=== PATIENT | female | born 1980 | race Caucasian/White ===

== ENCOUNTER 2021-09-16 10:54 | Day surgery (SDC) | payer BC ==
[2021-09-15 13:51] VITALS: BMI 23.2
[~2021-09-16 10:54] MED LIST: LACTATED RINGERS 1,000 ML IV SCH; LIDOCAINE 1% (10MG/ML) FOR IV START INTRADERMA PRN
[2021-09-16 11:21] VITALS: TEMP 96.8
[2021-09-16] MEDS ORDERED: PROPOFOL 10 MG/ML 20 ML VIAL IV ONE (11:26)
--- NOTE | 2021-09-16 11:30 | P.GSHP ---
History of Present Illness H&P Date: 09/16/21 Chief Complaint: Screening, history of polyps 41-year-old female here for colonoscopy. Patient's last colonoscopy 7 years ago. History of 4 polyps found at that time 3 of which were tubular adenomas. Family history of colon cancer in her mother and uncle. Patient with complaints of an external hemorrhoid as well that is difficult to keep clean. No change in bowel habits. Past Medical History Past Medical History: No Reported History Additional Past Medical History / Comment(s): HEMORRHOIDS, HX COLON POLYPS., FAMILY HX OF COLON CANCER. History of Any Multi-Drug Resistant Organisms: None Reported Past Surgical History: Tubal Ligation Additional Past Surgical History / Comment(s): Colonoscopy with polypectomy. Past Anesthesia/Blood Transfusion Reactions: No Reported Reaction Past Psychological History: Anxiety Smoking Status: Current every day smoker Past Alcohol Use History: Rare Additional Past Alcohol Use History / Comment(s): Has been smoking for 20 yrs, 1 ppd. Past Drug Use History: None Reported - Past Family History Mother Family Medical History: Cancer Additional Family Medical History / Comment(s): Colon cancer. Medications and Allergies Home Medications Medication Instructions Recorded Confirmed Type PARoxetine [Paxil] 10 mg PO DAILY 04/11/21 09/16/21 History Allergies Allergy/AdvReac Type Severity Reaction Status Date / Time No Known Allergies Allergy Verified 09/16/21 11:10 Surgical - Exam Vital Signs Temp Pulse Resp BP Pulse Ox 96.8 F L 93 18 104/57 96 09/16/21 11:17 09/16/21 11:17 09/16/21 11:17 09/16/21 11:17 09/16/21 11:17 Physical exam: General: Well-developed, well-nourished HEENT: Normocephalic, sclerae nonicteric Abdomen: Nontender, nondistended Extremities: No edema Neuro: Alert and oriented Assessment and Plan (1) Colon cancer screening Narrative/Plan: Will proceed with colonoscopy at this time Current Visit: Yes Status: Acute Code(s): Z12.11 - ENCOUNTER FOR SCREENING FOR MALIGNANT NEOPLASM OF COLON SNOMED Code(s): 727040478
--- NOTE | 2021-09-16 11:52 | P.PCN ---
Date of Procedure: 09/16/21 Procedure(s) Performed: PREOPERATIVE DIAGNOSIS: Colon cancer screening, history of polyps POSTOPERATIVE DIAGNOSIS: Sigmoid colon polyp 25 cm, external hemorrhoid PROCEDURE: Colonoscopy with snare polypectomy ANESTHESIA: MAC SURGEON: Minh Beach M.D. SPECIMENS: Polyp ENDOSCOPIC PROCEDURE: The patient was placed on the endoscopy table in the left decubitus position. The Olympus colonoscope was inserted into the anus and passed under direct visualization to the base of the cecum. The appendiceal nasim fice was visualized. From that point the scope was slowly withdrawn inspecting all surfaces carefully. There were no neoplastic inflammatory or polypoid lesions throughout the cecum, ascending, transverse, and descending colon. In the sigmoid at 25 cm there was a pedunculated polyp that was removed using the snare with cautery technique. In this measured 8 mm in size. There was no visible diverticulosis. At the anus the patient was noted have a prominent internal/external hemorrhoidal complex in the right anterior location. This was mildly inflamed. The patient was taken to the recovery room in stable condition per anesthesia guidelines. RECOMMENDATIONS: Await biopsy results. Patient will consider operative hemorrhoidectomy. Follow-up colonoscopy 5 years.
[2021-09-16 12:13] VITALS: BP 110/66; PULSE 71; RESP 16
== END 2021-09-16 12:25 | disposition home or self-care (01) ==
LOC: ORWHC2ENDO 10:54
PROVIDERS: ATTEND Surgery
DX: Z12.11 Encounter for screening for malignant neoplasm of colon (principal); D12.5 Benign neoplasm of sigmoid colon; K64.8 Other hemorrhoids; K64.4 Residual hemorrhoidal skin tags; F17.210 Nicotine dependence, cigarettes, uncomplicated; Z80.0 Family history of malignant neoplasm of digestive organs; Z86.010 Personal history of colon polyps; Z98.51 Tubal ligation status; Z79.899 Other long term (current) drug therapy
CPT/HCPCS: 81025; 88305; 45385; J2704

== ENCOUNTER → 2023-06-01 | Outpatient (CLI) | payer BC ==
--- NOTE | 2023-06-01 14:44 | MM ---
Reason for Exam: Clinical finding. Indicated Problems: Lump or thickening of both sides for 2 Week(s). Patient History: Menarche at age 13. First Full-Term at age 21. Patient used Hormonal Contraceptives for 15 years. Last menstrual period: 06/01/2023 Risk Values: Huma 5 year model risk: 0.7%. NCI Lifetime model risk: 7.9%. Tissue Density: The breast tissue is heterogeneously dense. This may lower the sensitivity of mammography. Findings: Analyzed By CAD. Focal asymmetry right breast 3.4 cm nipple on MLO view posterior nipple line measuring 16 mm and left breast MLO view 2.9 cm from nipple measuring 16 mm . On CC view these are slightly lateral the bilaterally. Overall Assessment: Incomplete: need additional imaging evaluation, BI-RAD 0 Management: Diagnostic Breast Ultrasound of both breasts. Results were given to the patient verbally at the time of exam. Patient should continue monthly self-breast exams. A clinical breast exam by your physician is recommended on an annual basis. This exam should not preclude additional follow-up of suspicious palpable abnormalities. Note on Huma scores and lifetime risk: 1. A Huma score greater than 3% is considered moderate risk. If this is the case, consider specialist referral to assess eligibility for a risk reducing agent. 2. If overall lifetime risk for the development of breast cancer is 20% or higher, the patient may qualify for future screening with alternating mammogram and breast MRI. Electronically signed and approved by: Isai Herrmann DO
--- NOTE | 2023-06-01 15:53 | USB ---
Reason for Exam: Clinical finding. Patient History: Menarche at age 13. First Full-Term at age 21. Patient used Hormonal Contraceptives for 15 years. Risk Values: Huma 5 year model risk: 0.7%. NCI Lifetime model risk: 7.9%. Technique: Method: Targeted. Findings: The area of palpable concern of both breasts, the axilla of both breasts and the retroareolar of both breasts were scanned. Targeted ultrasound bilateral breasts. Targeted scanning to the patient's palpable site. Right breast 10:00 position including the subareolar region and axilla. Right breast 10:00, 1 cm from the nipple, there is a benign 1.6 x 1.4 x 1.2 cm lobulated cyst. Left breast 10:00 position, 1 cm from the nipple, 1.4 x 1.2 x 0.9 cm lobulated cyst. In addition, there is a dense shadowing area measuring approximately 9 mm located directly behind the nipple. This appears to correspond to a spiculated area on mammogram. Further tissue sampling is recommended. No axillary lymphadenopathy. Overall Assessment: Highly suggestive of malignancy, BI-RAD 5 Management: Ultrasound-Guided Core Biopsy of the left breast. Results were given to the patient verbally at the time of exam. Electronically signed and approved by: Isai Herrmann DO
== END | disposition home or self-care (01) ==
LOC: RADMAMWWP 14:10
PROVIDERS: ATTEND Family Medicine
DX: R92.333 Mammographic heterogeneous density, bilateral breasts (principal); N63.10 Unspecified lump in the right breast, unspecified quadrant; N63.20 Unspecified lump in the left breast, unspecified quadrant
CPT/HCPCS: 77062; 77066

== ENCOUNTER → 2023-06-18 | Outpatient (CLI) | payer BC ==
[2023-06-18 13:52] VITALS: BP 128/82; PULSE 81; RESP 18; TEMP 98.2
--- NOTE | 2023-06-18 14:19 | P.GSHP ---
History of Present Illness H&P Date: 06/18/23 Chief Complaint: left breast invasive lobular cancer; stage I Kate is a 43 year old female seen in consultatio for Nahed De La Garza regarding a biopsy proven left breast invasive lobular cancer. She had a bilateral mammogram on 06-01-23 which led to a bilateral ultrasound on the same date. This revealed cyst in both breast as well as a 9 mm lesion posterior to the left nipple. This was biopsied and was (+) for an invasive lobular cancer, ER+< Pr+, HEr2(-),G2. Her felt a lump in her left breast two months ago. She then decided to have this evaluated. She has always had dense breast but nothing that required biopsy. Not had any surgery on her breast in the past. She is not complaining of any recent trauma or infection in the breast. She does not complain of pain in the breast. She has regular menstrual periods. This was her first mammogram. She does get regular colonoscopies secondary to family history she has had polyps removed. Her last one was in 2021 two polpys removed no cancer. She has not had any genetic testing. Caffeine: coffee and pop daily nicotine: 1 PPD since 14 chocolate: occasional BCP: from 16 until 33 hormones: none Family History: mother: of colon cancer at 37 maternal uncle: of colon cancer in his 30's maternal uncle: of pancreatic cancer Maternal uncle: Diagnosed with pancreatic cancer maternal aunt: cancer ? type paternal grandfather: brain cancer Hormonal History: menarche: 12 , breast fed: no, age at first : 21 periods regular BCP: 16 to 33 Surgical history: tubaligation dental surgery Medical History: none Patient history: Nicotine: One pack per day Alcohol: Negative Drugs: Negative - Constitutional Constitutional: Denies chills, Denies fever - EENT Eyes: denies blurred vision, denies pain Ears: deny: decreased hearing, tinnitus Ears, nose, mouth and throat: Denies headache, Denies sore throat - Breasts Breasts: bilateral: as per HPI - Cardiovascular Cardiovascular: Denies chest pain, Denies shortness of breath - Respiratory Respiratory: Reports as per HPI, Denies cough - Gastrointestinal Gastrointestinal: Denies abdominal pain, Denies diarrhea, Denies nausea, Denies vomiting - Genitourinary (Female) Genitourinary: Denies dysuria, Denies hematuria - Menstruation Menstruation: Reports period normal - Musculoskeletal Musculoskeletal: Denies myalgias - Integumentary Comment: Rosacea/may be related to nerves Integumentary: Denies pruritus, Denies rash - Neurological Neurological: Denies numbness, Denies weakness - Psychiatric Psychiatric: Reports anxiety, Denies depression - Endocrine Endocrine: Denies fatigue, Denies weight change - Hematologic/Lymphatic Comment: none - Allergic/Immunologic Allergic/Immunologic: Reports as per HPI Past Medical History Past Medical History: No Reported History Additional Past Medical History / Comment(s): HEMORRHOIDS, HX COLON POLYPS., FAMILY HX OF COLON CANCER. History of Any Multi-Drug Resistant Organisms: None Reported Past Surgical History: Tubal Ligation Additional Past Surgical History / Comment(s): Colonoscopy with polypectomy. Past Anesthesia/Blood Transfusion Reactions: No Reported Reaction Past Psychological History: Anxiety Smoking Status: Current every day smoker Past Alcohol Use History: Rare Additional Past Alcohol Use History / Comment(s): Has been smoking for 20 yrs, 1 ppd. Past Drug Use History: None Reported - Past Family History Mother Family Medical History: Cancer Additional Family Medical History / Comment(s): Colon cancer. Medications and Allergies Home Medications Medication Instructions Recorded Confirmed Type PARoxetine [Paxil] 10 mg PO DAILY 04/11/21 06/18/23 History Allergies Allergy/AdvReac Type Severity Reaction Status Date / Time No Known Allergies Allergy Verified 06/18/23 13:45 Surgical - Exam Vital Signs Temp Pulse Resp BP Pulse Ox 98.2 F 81 18 128/82 100 06/18/23 13:45 06/18/23 13:45 06/18/23 13:45 06/18/23 13:45 06/18/23 13:45 - General no distress - Eyes normal ocular movement - ENT no hearing loss - Neck trachea midline - Cardiovascular Rhythm: regular Heart Sounds: normal: S1, S2 - Abdomen Abdomen: soft, non tender, no guarding, no rigid, no rebound - Integumentary normal turgor - Neurologic no disoriented, no combative - Musculoskeletal normal gait - Psychiatric oriented to time, oriented to person, oriented to place, speech is normal, memory intact Breast Exam: BRA: 36C Inspection: Biopsy site left breast clean and dry, bilateral grade 1 ptosis Palpation: Right breast: Multi-positional exam no dominant masses or nodules of concern, dense breast tissue Right axilla: No adenopathy of concern Left breast: Multi-positional exam dense breast tissue with increased nodularity directly behind the nipple areolar complex Left axilla: No adenopathy of concern Results Mammogram and ultrasound personally reviewed Assessment and Plan Assessment: Impression: The diagnosis of stage I left breast invasive lobular carcinoma Nicotine dependence Plan: Presentation of case at tumor board Genetic testing Breast MRI CC: Chio De La Garza
== END ==
LOC: WWCWWP 12:54
PROVIDERS: ATTEND Surgery
DX: C50.912 Malignant neoplasm of unspecified site of left female breast (principal); F41.9 Anxiety disorder, unspecified; F17.210 Nicotine dependence, cigarettes, uncomplicated; N60.01 Solitary cyst of right breast; N60.02 Solitary cyst of left breast; Z87.19 Personal history of other diseases of the digestive system; Z17.0 Estrogen receptor positive status [ER+]

== ENCOUNTER → 2023-07-08 | Outpatient (CLI) | payer BC ==
--- NOTE | 2023-07-20 12:57 | BMR ---
EXAM DATE: 07/19/2023 EXAM DESCRIPTION: MRI-Breast Bilat (W/WO Contrast) INDICATION: Diagnostic. Recently diagnosed carcinoma presenting for staging COMPARISON: Comparison is made with relevant prior imaging in PACS. CONTRAST: 6.5 cc of Gadavist TECHNIQUE: Study was performed at [facility] on 07/08 with images made available by radiologic interpretation by [facility] on 07/19/2023. Multiplanar MRI imaging of both breasts was performed with a dedicated breast coil, before and after intravenous administration of gadolinium contrast, using the standard breast mass protocol. Computer-aided detection was used to aid in interpretation. FINDINGS: General breast composition: There are scattered areas of fibroglandular tissue Background parenchymal enhancement: Mild FINDINGS: Left breast: Review of the dynamic contrast-enhanced series shows a irregular enhancing mass in the central breast at mid depth measuring 2.3 x 1.9 x 1.7 cm at site of known malignancy (503:350, 601:42). There is non contiguous associated clumped non mass enhancement extending to the nipple with nipple retraction. There is also noncontiguous associated clumped non mass enhancement extending medially to the inner breast, the entire area measuring 4.3 x 3.6 cm. An additional 0.5 cm satellite mass is present 0.6 cm inferior to the index mass (601:43, 504:287). There is 1 left axillary lymph node with focally ectatic cortex (503:742) Right breast: Review of the dynamic contrast-enhanced series shows 0.5 cm oval circumscribed enhancing T2 mass consistent with a intramammary lymph node. No suspicious rapidly enhancing masses, enhancement patterns or other abnormalities. The T2 weighted series shows scattered benign cysts. IMPRESSION: Left breast: BI-RADS Category6- Known biopsy proven malignancy 1. 2.3 cm mass in the central breast at mid depth at the site of known malignancy. There is non contiguous non mass enhancement extending to the medial breast as well as to the nipple with nipple retraction. This entire area measures 4.3 x 3.6 cm and is concerning for multicentric disease. If breast conservation is being considered, recommend targeted ultrasound and possible biopsy, if no sonographic correlate is present recommend MR biopsy for evaluation of extent of disease. 2. One axillary lymph node with focally ectatic cortex, recommend targeted ultrasound and possible biopsy. Recommendation: Targeted left breast ultrasound and possible biopsy. Right breast: BI-RADS Category 1- Negative No MRI evidence of malignancy. Recommendation: MRI screening in 1 year OVERALL ASSESSMENT -- BI-RADS 6 MTDD
== END | disposition home or self-care (01) ==
LOC: RADMRIMAIN 11:29
PROVIDERS: ATTEND Surgery
DX: C50.212 Malignant neoplasm of upper-inner quadrant of left female breast (principal)
CPT/HCPCS: 77049; A9585

== ENCOUNTER → 2023-07-21 | Outpatient (CLI) | payer BC ==
--- NOTE | 2023-07-21 13:11 | P.PN ---
Subjective Progress Note Date: 07/21/23 Principal diagnosis: Left breast invasive lobular carcinoma stage IA History of Present Illness H&P Date: 07-21-23 Chief Complaint: left breast invasive lobular cancer; stage I Kate is a 43 year old female seen in consultation for Nahed De La Garza regarding a biopsy proven left breast invasive lobular cancer. She had a bilateral mammogram on 06-01-23 which led to a bilateral ultrasound on the same date. This revealed cyst in both breast as well as a 9 mm lesion posterior to the left nipple. This was biopsied and was (+) for an invasive lobular cancer, ER+< Pr+, HEr2(-),G2. Her felt a lump in her left breast two months ago. She then decided to have this evaluated. She has always had dense breast but nothing that required biopsy. Not had any surgery on her breast in the past. She is not complaining of any recent trauma or infection in the breast. She does not complain of pain in the breast. She has regular menstrual periods. This was her first mammogram. She does get regular colonoscopies secondary to family history she has had polyps removed. Her last one was in 2021 two polpys removed no cancer. She has not had any genetic testing. Bilateral breast MRI was performed on [id number], findings revealed questionable multicentric disease in the left breast and left axillary lymph node with focally ectatic cortex Right breast no suspicious enhancing lesions noted MRI was reviewed with Dr. Pisano in detail Genetic testing performed negative Appointment with Dr. Moody/at this time the patient prefers bilateral mastectomy with immediate reconstruction Caffeine: coffee and pop daily nicotine: 1 PPD since 14 chocolate: occasional BCP: from 16 until 33 hormones: none Family History: mother: of colon cancer at 37 maternal uncle: of colon cancer in his 30's maternal uncle: of pancreatic cancer Maternal uncle: Diagnosed with pancreatic cancer maternal aunt: cancer ? type paternal grandfather: brain cancer Hormonal History: menarche: 12 , breast fed: no, age at first : 21 periods regular BCP: 16 to 33 Surgical history: tubaligation dental surgery Medical History: none Patient history: Nicotine: One pack per day Alcohol: Negative Drugs: Negative - Constitutional Constitutional: Denies chills, Denies fever - EENT Eyes: denies blurred vision, denies pain Ears: deny: decreased hearing, tinnitus Ears, nose, mouth and throat: Denies headache, Denies sore throat - Breasts Breasts: bilateral: as per HPI - Cardiovascular Cardiovascular: Denies chest pain, Denies shortness of breath - Respiratory Respiratory: Reports as per HPI, Denies cough - Gastrointestinal Gastrointestinal: Denies abdominal pain, Denies diarrhea, Denies nausea, Denies vomiting - Genitourinary (Female) Genitourinary: Denies dysuria, Denies hematuria - Menstruation Menstruation: Reports period normal - Musculoskeletal Musculoskeletal: Denies myalgias - Integumentary Comment: Rosacea/may be related to nerves Integumentary: Denies pruritus, Denies rash - Neurological Neurological: Denies numbness, Denies weakness - Psychiatric Psychiatric: Reports anxiety, Denies depression - Endocrine Endocrine: Denies fatigue, Denies weight change - Hematologic/Lymphatic Comment: none - Allergic/Immunologic Allergic/Immunologic: Reports as per HPI Past Medical History Past Medical History: No Reported History Additional Past Medical History / Comment(s): HEMORRHOIDS, HX COLON POLYPS., FAMILY HX OF COLON CANCER. History of Any Multi-Drug Resistant Organisms: None Reported Past Surgical History: Tubal Ligation Additional Past Surgical History / Comment(s): Colonoscopy with polypectomy. Past Anesthesia/Blood Transfusion Reactions: No Reported Reaction Past Psychological History: Anxiety Smoking Status: Current every day smoker Past Alcohol Use History: Rare Additional Past Alcohol Use History / Comment(s): Has been smoking for 20 yrs, 1 ppd. Past Drug Use History: None Reported - Past Family History Mother Family Medical History: Cancer Additional Family Medical History / Comment(s): Colon cancer. Medications and Allergies Home Medications Medication Instructions Recorded Confirmed Type PARoxetine [Paxil] 10 mg PO DAILY 04/11/21 06/18/23 History Allergies Allergy/AdvReac Type Severity Reaction Status Date / Time No Known Allergies Allergy Verified 06/18/23 13:45 Objective - Constitutional General appearance: Present: cooperative - EENT Eyes: Present: EOMI ENT: Present: hearing grossly normal - Neck Neck: Present: normal ROM - Respiratory Respiratory: bilateral: CTA - Cardiovascular Rhythm: regular Heart sounds: normal: S1, S2 - Gastrointestinal General gastrointestinal: Present: soft - Integumentary Integumentary: Present: normal turgor - Musculoskeletal Musculoskeletal: Present: gait normal - Psychiatric Psychiatric: Present: A&O x's 3, appropriate affect, intact judgment & insight - Additional findings Additional findings: Breast Exam: BRA: 36C Inspection: Biopsy site left breast clean and dry, bilateral grade 1 ptosis Palpation: Right breast: Multi-positional exam no dominant masses or nodules of concern, dense breast tissue Right axilla: No adenopathy of concern Left breast: Multi-positional exam dense breast tissue with increased nodularity directly behind the nipple areolar complex Left axilla: No adenopathy of concern Assessment and Plan Assessment: Impression: stage I left breast invasive lobular carcinoma Nicotine dependence Genetic testing negative Possible multicentric lobular carcinoma in the left breast as per recent MRI Possible involved lymph node in the left axilla Plan: Presentation of case at tumor board; done 06-22-23 Genetic testing; negative Breast MRI; reviewed with radiology Dr. Beltran Ultrasound left axilla secondary to findings on MRI Bilateral skin sparing mastectomy with immediate reconstruction with Dr. Moody, left breast sentinel node injection, left breast sentinel node biopsy, possible left axillary node dissection The benefits of the procedure discussed with the patient and her . Risks include but are not limited to bleeding, infection, reaction to the anesthetic. Risk of decreased sensation to the inner arm, lymphedema, injury to the thoracodorsal and long thoracic nerves are discussed. Additionally the patient has been encouraged to stop smoking secondary to wound healing. Discussed the possibility of methylene blue injection she understands and wishes to proceed with surgery. CC: Chio De La Garza Additional CC's: Cookie Prather
[2023-07-21 13:26] VITALS: BP 116/75; PULSE 92; RESP 16; TEMP 97.9
--- NOTE | 2023-07-21 14:12 | USB ---
Reason for Exam: Additional evaluation requested from prior study. Patient History: Menarche at age 13. First Full-Term at age 21. Breast cancer, left, age 43. Patient used Hormonal Contraceptives for 15 years. 06/11/2023, Malignant US biopsy breast VAD LT on the left side. Technique: Method: Targeted. Prior Study Comparison: 06/01/2023 Bilateral US breast limited BILAT, H. 06/01/2023 Bilateral MG 3D diag mammo w/cad [facility], [facility]. 06/11/2023 Left MG diagnostic mammo LT wo CAD., [facility]. Findings: The axilla of both breasts was scanned. Right axilla appears negative. No suspicious adenopathy is evident. Left axilla is imaged. There is an elongated lymph node measuring 3.0 x 0.6 x 0.8 cm. The cortex is thin. No suspicious thickened cortex is identified. Cortex measurement is 0.186 cm. Surgical management of the patient's left breast neoplasm is recommended. Overall Assessment: Benign, BI-RAD 2 Management: Surgical Consultation of the left breast. A clinical breast exam by your physician is recommended on an annual basis and results should be correlated with mammographic findings. This exam should not preclude additional follow-up of suspicious palpable abnormalities. Results were given to the patient verbally at the time of exam. Electronically signed and approved by: Eric Pisano D.O. Radiologis
== END ==
LOC: WWCWWP 12:30
PROVIDERS: ATTEND Surgery
DX: C50.912 Malignant neoplasm of unspecified site of left female breast (principal); K64.8 Other hemorrhoids; F41.9 Anxiety disorder, unspecified; F17.200 Nicotine dependence, unspecified, uncomplicated; Z86.010 Personal history of colon polyps

== ENCOUNTER → 2023-07-21 | Outpatient (CLI) | payer BC | END | disposition home or self-care (01) | LOC: RADUSWWP 13:22 | PROVIDERS: ATTEND Surgery | DX: Z53.9 Procedure and treatment not carried out, unspecified reason (principal) ==

== ENCOUNTER 2023-08-10 10:27 | Day surgery (SDC) | payer BC ==
[2023-08-03 15:54] VITALS: BMI 26.5
[2023-08-10] MEDS: LACTATED RINGERS 1,000 ML IV ONE ×2 (11:11→14:14)
[2023-08-10] MEDS: LIDOCAINE 1% (10MG/ML) FOR IV START INTRADERMA PRN (11:23)
[2023-08-10] MEDS: DEXAMETHASONE SOD PHOSPHATE 4 MG/ML 1 ML VIAL IV ONE (11:24)
[2023-08-10] MEDS: ONDANSETRON 4 MG/2 ML VIAL IVP ONE (11:24)
[2023-08-10] MEDS: FAMOTIDINE 20 MG/2 ML VIAL IVP ONE (11:24)
[2023-08-10] MEDS: HEPARIN SODIUM,PORCINE 5,000 UNIT/ML 1 ML VIAL SQ PRN (11:25)
[2023-08-10] MEDS: MIDAZOLAM 2 MG/2 ML VIAL IV PRN (11:29)
--- NOTE | 2023-08-10 12:26 | P.NAPBC ---
NAPBC Queries - NAPBC Queries Was patient's case review presented at [facility] tumor board? If no, comment.: Yes Was patient's pathology reviewed at [facility]? If no, comment.: Yes Was breast conservation surgery offered? If no, comment.: Yes (discussed) Was sentinel node biopsy offered? If no, comment.: Yes Was diagnosis confirmed by percutaneous core biopsy? If no, comment.: Yes Is patient mastectomy patient?: Yes Was a preop referral to reconstructive surgeon offered?: Yes Clinical Stage: stage I left breast invasive lobular cancer [id number]
[2023-08-10] MEDS ORDERED: PHENYLEPHRINE 10 MG/ML VIAL ONE (13:07)
[2023-08-10] MEDS ORDERED: ePHEDrine 50 MG/ML 1 ML VIAL ONE (13:07)
[2023-08-10] MEDS ORDERED: fentaNYL (PF) 50 MCG/ML 2 ML AMP ONE (13:07)
[2023-08-10] MEDS ORDERED: MIDAZOLAM 2 MG/2 ML VIAL ONE (13:07)
[2023-08-10] MEDS ORDERED: SUCCINYLCHOLINE CHLORIDE 200 MG/10 ML VIAL IV ONE (13:07)
[2023-08-10] MEDS ORDERED: PROPOFOL 10 MG/ML 20 ML VIAL IV ONE (13:07)
[2023-08-10] MEDS ORDERED: LIDOCAINE 1% INJ 10MG/ML (20 ML MDV) ONE (13:07)
--- NOTE | 2023-08-10 13:59 | NM ---
EXAMINATION TYPE: NM sentinel node injection DATE OF EXAM: 08/10/2023 COMPARISON: NONE CLINICAL INDICATION: Female, 43 years old with history of LEFT BREAST CA; TECHNIQUE AND FINDINGS: The procedure of sentinel lymph node injection was explained to the patient. The benefits, alternatives, and risks were discussed. An informed consent was then obtained. Overlying skin is cleaned with sterile alcohol. Following this, 476 uCi [id number] Tilmanocept was inject ed in the upper outer aspect of the left nipple intradermally. The patient tolerated the procedure well without any immediate complication. The patient was kept in the radiology department for short stay after the procedure and then taken to surgery for surgical p rocedure what is presumed intraoperative gamma probe will be used for sentinel lymph node detection. IMPRESSION: Left breast radiotracer injection for sentinel node localization as above.
[2023-08-10] MEDS ORDERED: NALOXONE 0.4 MG/ML 1 ML VIAL IV PRN (15:09)
--- NOTE | 2023-08-10 15:09 | P.OP ---
Date of Procedure: 08/10/23 Preoperative Diagnosis: Left breast invasive lobular carcinoma Postoperative Diagnosis: Same Procedure(s) Performed: Left sentinel node biopsy, bilateral skin sparing mastectomy with implant reconstruction Anesthesia: NKECHI Surgeon: Edilia Vázquez Estimated Blood Loss (ml): 25 IV fluids (ml): 1,000 Pathology: other (Left sentinel node, bilateral breast) Condition: stable Disposition: same day Indications for Procedure: Left breast invasive lobular carcinoma/MRI questionably multicentric Operative Findings: Dense breast tissue Description of Procedure: The patient was seen first by radiology where injection of radiotracer was performed in the left periareolar area. The patient was also seen in the preoperative area by Dr. Infante from plastic surgery and circumareolar incision markings were placed. The patient was brought to the operative suite. Following induction of anesthesia the neoprobe was used to interrogate the axilla and confirmed that radioactivity had traveled to the axilla. 2 radioactive lymph nodes were identified, and removed. The first had a 10-second count of 7755, the second had a 10-second count of 59,672. The background 10- second count was 37. No further suspicious adenopathy was identified. After we are sure that hemostasis was attained the deep tissues were closed using 3-0 Vicryl suture. This was followed by closure of the skin with a 4-0 Monocryl. The left breast was then approached. Using a circumareolar incision careful dissection was performed between the subcutaneous tissue and the breast tissue. Dissection was performed circumferentially down to the area of the pectoralis muscle. The breast was removed from the pectoralis muscle from medial to lateral. The specimen was then tagged with a short suture superior and a long suture lateral. The wound was well-irrigated. We used the harmonic scalpel as well as an suture ligation to assure that there was no active bleeding. The area of the right breast was approached. Gloves and instruments were changed. A circumareolar incision was performed. Circumferential dissection between the area of the subcutaneous tissue and the breast tissue was performed. This was dissected down to the pectoralis muscle. The breast was brought from medial to lateral being careful to maintain hemostasis using the electrocautery device, harmonic scalpel, and suture ligation of needed. After the tissue had been dissected laterally it was removed. As short suture was placed superiorly and a long suture was placed laterally. The wound was well-irrigated. At this time Dr. Moody from plastic surgery began his portion of the procedure with placement of prepectoral expanders.
[2023-08-10] MEDS: HYDROmorphone 0.5 MG/0.5 ML SYRINGE IVP PRN (16:07)
[2023-08-10] MEDS: droPERidol 5 MG/2 ML VIAL IVP ONE (16:33)
[2023-08-10] MEDS: LACTATED RINGERS 1,000 ML IV SCH (16:45)
[2023-08-10] MEDS: DEXTROSE 5%-0.45% NACL 1,000 ML IV SCH (17:30)
[2023-08-10] MEDS: HYDROmorphone 1 MG/ML 1 ML SYRINGE IVP PRN (18:34)
[2023-08-10] MEDS: HEPARIN SODIUM,PORCINE 5,000 UNIT/ML 1 ML VIAL SQ SCH (20:42)
[2023-08-10] MEDS: ONDANSETRON 4 MG/2 ML VIAL IVP PRN (21:38)
--- NOTE | 2023-08-10 23:52 | OP ---
OPERATIVE REPORT DATE OF SERVICE : 08/10/2023 PREOPERATIVE DIAGNOSES: 1. Breast cancer, left breast. 2. Acquired loss right and left breast. POSTOPERATIVE DIAGNOSES: 1. Breast cancer, left breast. 2. Acquired loss, bilateral breasts. OPERATIVE PROCEDURES: 1. Immediate reconstruction left breast following mastectomy with insertion of tissue party plan sales unit sales leader, subsequent outpatient expansion. 2. Implantation of reconstructive graft for left breast reconstruction. 3. Immediate reconstruction right breast following mastectomy with insertion of tissue party plan sales unit sales leader, subsequent outpatient expansion. 4. Implantation of reconstructive graft for right breast reconstruction. OPERATIVE INDICATIONS: The patient is a 43-year-old female with left-sided breast cancer, was elected to proceed with bilateral mastectomy procedures and desires immediate breast reconstruction. She has elected upon a tissue party plan sales unit sales leader style technique. She understands potential risks and complications, including the increased risk of healing problems related to her history of habitual tobacco use. The patient has requested to perform today's surgery. OPERATIVE PROCEDURE SUMMARY: The patient was seen in the preoperative area. Markings were made. Procedure reviewed. The patient was transported to the operative room where she was placed in supine position. Following induction of general endotracheal anesthesia, the patient was prepped and draped in usual fashion. Dr. Vázquez and her surgical team then proceeded with left-sided sentinel lymph node excision and left-sided mastectomy procedure. Once that was complete, I entered the operative suite. Dr. Vázquez proceeded with the right-sided mastectomy while I initiated left breast reconstruction. Sponge and needle counts from prior procedure were correct. The left mastectomy wound was open, no active bleeding. Additional dissection was required to optimize position for tissue party plan sales unit sales leader elevating skin, subcutaneous tissue overlying muscle and fascial tissues performed with cautery. Once this was sufficient, the cavity was measured and left-sided tissue party plan sales unit sales leader opened on the field. Both expanders were opened today with the same from [facility] tissue party plan sales unit sales leader line, reference #[id number], left-sided serial number was [id number] and later when opened, the right-sided serial number was [id number]. The left-sided party plan sales unit sales leader was opened to the surgeon. All air extracted, it was irrigated with saline and initially filled to a volume of 300 mL. This was placed in the reconstructive cavity for test fitting, although the volume was too great to allow for closure in a tension-free fashion, volume was reduced to 150 mL, which allowed for tension-free closure of the skin. The party plan sales unit sales leader was now covered with graft material, AlloDerm Select restore tissue matrix perforated, large size measuring 327 square cm, opened on the field. The AlloDerm was rinsed several times in saline and then a pre-stretched AlloDerm was now placed over all anterior surfaces of the party plan sales unit sales leader and secured with interrupted 2-0 Vicryl sutures through the 6 suture tabs. The right- sided party plan sales unit sales leader was now opened onto the field. Again, all air extracted, irrigated with saline. The right-sided party plan sales unit sales leader was filled to a volume of 150 mL with air and a second piece of AlloDerm Select restore tissue majors perforated large measuring 327 square cm, this was brought on the field. Both AlloDerms were medium thickness today. The AlloDerms were rinsed several times with saline, pre-stretched and then used to cover the anterior surface of the right-sided tissue party plan sales unit sales leader securing to the 6 suture tab locations using interrupted 2-0 Vicryl suture. Once the right-sided mastectomy procedures completed, the right-sided mastectomy cavity was inspected. Additional dissection was required to optimize position of party plan sales unit sales leader, it was completed with cautery elevating skin subcutaneous tissue of the muscle, muscle fascia layers. Once complete, irrigation was performed inside, each party plan sales unit sales leader was placed in its respective cavity for test fitting. They were then removed. Cavities were irrigated and inspected for hemostasis was optimal. A 19-round David channel drains were inserted in the surgical field. The left side brought separate stab incisions in the right anterior lower chest wall and sutured in place with 2-0 Prolene and then cut to appropriate length. The expanders were repositioned in the reconstructive cavities and once under palpable orientation, the expanders were secured to the chest wall using 3 of the 6 suture tabs medial superior, medial inferior, and central inferior securing with interrupted 2-0 Vicryl sutures. The mastectomy procedures were performed through a circumareolar approach and the medial one half of the chilkoot was now closed using a pursestring style 3-0 Monocryl suture. The lateral one half was closed by direct approximation using inverted interrupted deep dermal 3-0 Monocryl. The lateral portion of the closure was then completed with short running 5-0 Prolene and additional deep dermal 4-0 Monocryl suture used to complete the closure of the pursestring suture more finely approximating more superficial dermis and then completing the superficial dermal epidermal closure interrupted james. Drains were connected to close bulb suction patent. Surgical colon were cleansed with saline, dried and postoperative bandages were placed using bacitracin ointment over suture repairs followed by Adaptics, then Kerlix squares, secured with 3M Medipore tape. Drain sponges were placed and secured with tape as well. The patient was then awakened from her anesthetic, extubated in the operating room, transferred to recovery room in good condition with stable vital signs. ESTIMATED BLOOD LOSS: 25 mL. There were no complications. MMODL / IJN: [id number] /
[2023-08-11] MEDS: Acetaminophen-Codeine 300-30mg TAB PO PRN (00:31)
[2023-08-11 01:19] VITALS: RESP 16
[2023-08-11 07:33] LABS: Basophils % (A) 0 %; Eosinophils % (A) 0 %; HCT 41.1 % (34.0-46.0); HGB 14.2 gm/dL (11.4-16.0); Lymphocytes # (A) 1.8 k/uL (1.0-4.8); Lymphocytes % (A) 16 %; MCH 33.2 pg (25.0-35.0); MCHC 34.5 g/dL (31.0-37.0); MCV 96.3 fL (80.0-100.0); Mean Platelet Volume 9.1; Monocytes # (A) 0.3 k/uL (0-1.0); Monocytes % (A) 3 %; Neutrophils # (A) 9.3 k/uL (1.3-7.7); Neutrophils % (A) 80 %; Platelet Count 124 k/uL (150-450); RBC 4.27 m/uL (3.80-5.40); RDW 13.9 % (11.5-15.5); WBC 11.7 k/uL (3.8-10.6)
[2023-08-11 08:04] VITALS: BP 91/55; PULSE 75; TEMP 98
[2023-08-11] MEDS: PARoxetine 10 MG TAB PO SCH (08:38)
[2023-08-11] MEDS ORDERED: CYANOCOBALAMIN 500 MCG TAB PO SCH (10:45)
--- NOTE | 2023-08-11 10:53 | P.PN ---
Subjective Progress Note Date: 08/11/23 Principal diagnosis: Postop day #1 bilateral mastectomy with left sentinel node biopsy Postop day #1 bilateral mastectomy with prepectoral implant reconstruction and left sentinel node biopsy. The patient states she is doing well. She has had a serous drainage from her SAMANTA drains. Left 30 cc, right 45 cc. Her white count is 11.7, hemoglobin is 14.2. It is noted that her systolic blood pressure was 91 and this is to be rechecked. Otherwise the patient is doing well and wishes to be discharged home. Objective - Vital Signs Vital signs: Vital Signs Temp 98.0 F 08/11/23 07:59 Pulse 75 08/11/23 07:59 Resp 16 08/11/23 07:59 BP 91/55 08/11/23 07:59 Pulse Ox 98 08/11/23 07:59 FiO2 Intake & Output 08/10/23 08/11/23 08/11/23 18:59 06:59 18:59 Intake Total 2150 Output Total 293 875 Balance 1857 -875 Weight 67.9 kg Intake: IV 2150 Output: Drainage 68 75 Left Breast 28 30 Right Breast 40 45 Urine 200 800 Estimated Blood Loss 25 Other: # Voids 1 - Constitutional General appearance: Present: cooperative - EENT Eyes: Present: EOMI ENT: Present: hearing grossly normal - Neck Neck: Present: normal ROM - Respiratory Respiratory: bilateral: CTA - Cardiovascular Heart sounds: normal: S1, S2 - Integumentary Integumentary Comment(s): incision clean and dry bilateral, incision clean and dry left axilla No evidence of any seroma - Musculoskeletal Musculoskeletal Comment(s): patient in a chair - Psychiatric Psychiatric: Present: A&O x's 3, appropriate affect, intact judgment & insight - Labs CBC & Chem 7: 08/11/23 07:20 Labs: Abnormal Lab Results - Last 24 Hours (Table) 08/11/23 Range/Units 07:20 WBC 11.7 H (3.8-10.6) k/uL Plt Count 124 L (150-450) k/uL Neutrophils # 9.3 H (1.3-7.7) k/uL Assessment and Plan Assessment: Impression: POD #1 bilateral mastectomy with prepectoral construction, left sentinel node biopsy evaluated by Dr. Arenas Plan: Discharge home if okay with medicine Teach drain care Follow-up Dr. Murray 1 week Follow-up with Dr. Santiago
--- NOTE | 2023-08-11 10:56 | P.DS ---
Providers Attending physician: Edilia Vázquez Consults: 08/10/23 15:12 Consult Physician Routine Consulting Provider: Ruddy Arenas Consult Reason/Comments: medical managment Do you want consulting provider notified?: Yes Primary care physician: Cookie Prather [facility] Course: A 43-year-old white female diagnosed with a left breast stage I invasive lobular carcinoma. She was admitted on 08-09-2023 for a bilateral skin sparing mastectomy with prepectoral implant reconstruction and a left sentinel node biopsy. Postoperatively she has done well. She is ready for discharge if okay with medicine. Plan - Discharge Summary Discharge Rx Participant: Yes New Discharge Prescriptions: New Acetaminophen-Codeine 300-30mg [Tylenol w/codeine #3] 1 - 2 tab PO Q4-6H PRN #14 tablet PRN Reason: pain No Action [place]-3 Fatty Acids/Fish Oil [[place]-3 Fish Oil 1,200 mg Sfgl] 1 cap PO QAM Cyanocobalamin [Vitamin B-12] 1 tab PO QAM Acetaminophen Tab [Tylenol Tab] 1,000 mg PO Q6H PRN PRN Reason: Pain Ibuprofen [Motrin] 200 mg PO Q8HR PRN PRN Reason: Pain Discharge Medication List Cyanocobalamin [Vitamin B-12] 1 tab PO QAM 07/21/23 [History] [place]-3 Fatty Acids/Fish Oil [[place]-3 Fish Oil 1,200 mg Sfgl] 1 cap PO QAM 07/21/23 [History] Acetaminophen Tab [Tylenol Tab] 1,000 mg PO Q6H PRN 08/03/23 [History] Ibuprofen [Motrin] 200 mg PO Q8HR PRN 08/03/23 [History] Acetaminophen-Codeine 300-30mg [Tylenol w/codeine #3] 1 - 2 tab PO Q4-6H PRN #14 tablet 08/10/23 [Rx] Follow up Appointment(s)/Referral(s): Edilia Vázquez MD [STAFF PHYSICIAN] - 08/19/23 3:00 pm Activity/Diet/Wound Care/Special Instructions: Teach patient drain care May shower after [address] until seen by Dr. Murray Follow-up Dr. Santiago Discharge Disposition: HOME SELF-CARE
--- NOTE | 2023-08-11 18:39 | P.CONS ---
History of Present Illness - Reason for Consult Consult date: 08/11/23 Medical management Requesting physician: Edilia Vázquez - Chief Complaint Breast surgery - History of Present Illness This is a pleasant 43-year-old patient who has a diagnosis of stage I left breast invasive lobular cancer. Patient yesterday underwent left sentinel node biopsy bilateral skin-sparing mastectomy with implant reconstruction with Dr. Artemio uriostegui. Patient has a drain in place. Patient does take vitamin supplements. Does smoke cigarettes. This morning sitting up in a chair. at the bedside. Pain is controlled. Did tolerate some breakfast. Some pain at the operative site. Will be going home with the drain. Patient blood pressure normally runs around 105 systolic. Patient not dizzy or lightheaded. Review of systems: GEN.: Tired EYES: None HEENT: None NECK: None RESPIRATORY: None CARDIOVASCULAR: None GASTROINTESTINAL: None GENITOURINARY: None MUSCULOSKELETAL: None LYMPHATICS: None HEMATOLOGICAL: None PSYCHIATRY: Anxious NEUROLOGICAL: None Social history: Patient is a teacher in the [employer]. Smokes a pack a day since age 14. . Alcohol occasionally Physical examination: VITAL SIGNS: 98, 75, 16, 91/55, 98% room air GENERAL: BMI 26.5, sitting up in a chair awake comfortable. EYES: Pupils equal. Conjunctiva nanda l. HEENT: External appearance of nose and ears normal, oral cavity grossly normal. NECK: JVD not raised; masses not palpable. HEART: First and second heart sounds are normal; no edema. LUNGS: Respiratory rate normal; clear to auscultation. ABDOMEN: Soft, nontender, liver spleen not palpable, no masses palpable. CHEST wall: Dressing in place with drain PSYCH: Alert and oriented x3; mood and affect nanda l. MUSCULOSKELETAL:No Clubbing/cyanosis;muscles-grossly intact NEUROLOGICAL: Cranial nerves grossly intact; no facial asymmetry, power and sensation grossly intact. LYMPHATICS: No lymph nodes palpable in the axilla and neck INVESTIGATIONS, reviewed in the clinical context: August 11, 2023: White 11.7 hemoglobin 14.2 platelets 124 Assessment plan: -Stage I left breast invasive lobular carcinoma. Genetic testing negative. Patient underwent bilateral skin sparing mastectomy with Reconstruction. [place] Node Biopsy. Postprocedure Has Drains in Place. Pain Control per surgery. -Chronic nicotine dependence, cigarette smoker Nicotine patch. Nicotine gum. -Anxiety/depression otherwise specified Patient was taking Paxil up [place] a few weeks ago. Currently a bit anxious. Discussed at length. Given that she is also a smoker will give Wellbutrin. Also given an sophy for mindfulness. -Reactive leukocytosis from surgery . No obvious evidence of infection. Follow-up with breast surgeon -Mild thrombocytopenia That she had follow-up again with outpatient with a repeat CBC outpatient. Care was discussed at length with the patient at the bedside. Questions answered. Follow-up with PCP. Thank you, Dr. Francie Red Past Medical History Past Medical History: Cancer Additional Past Medical History / Comment(s): Recent dx lt breast cancer,HEMORRHOIDS, HX COLON POLYPS., FAMILY HX OF COLON CANCER, Rosacea,"I have markings on the back of my leg, my Dr said it's a vascular disease""She said we'll check it out after I get done with my cancer stuff" History of Any Multi-Drug Resistant Organisms: None Reported Past Surgical History: Tubal Ligation Additional Past Surgical History / Comment(s): Lt breast Bx Jun 2023,Colonoscopy with polypectomy. Past Anesthesia/Blood Transfusion Reactions: No Reported Reaction Smoking Status: Current every day smoker - Past Family History Mother Family Medical History: Cancer Additional Family Medical History / Comment(s): Colon cancer. Medications and Allergies Home Medications Medication Instructions Recorded Confirmed Type Cyanocobalamin [Vitamin B-12] 1 tab PO QAM 07/21/23 08/03/23 History [place]-3 Fatty Acids/Fish Oil 1 cap PO QAM 07/21/23 08/03/23 History [[place]-3 Fish Oil 1,200 mg Sfgl] Acetaminophen Tab [Tylenol] 1,000 mg PO Q6H PRN 08/03/23 08/03/23 History Ibuprofen [Motrin] 200 mg PO Q8HR PRN 08/03/23 08/03/23 History Acetaminophen-Codeine 300-30mg 1 - 2 tab PO Q4-6H PRN #14 tablet 08/10/23 Rx [Tylenol w/codeine #3] Nicotine 21Mg/24Hr Patch [Habitrol] 1 each TRANSDERM DAILY #42 patch 08/11/23 Rx buPROPion [Wellbutrin] 100 mg PO BID #60 tablet 08/11/23 Rx Allergies Allergy/AdvReac Type Severity Reaction Status Date / Time No Known Allergies Allergy Verified 08/03/23 15:38 Physical Exam Vitals: Vital Signs Temp Pulse Pulse Pulse Resp BP BP 08/11/23 07:59 98.0 F 75 16 91/55 08/11/23 04:00 98.2 F 72 16 105/64 08/11/23 00:00 98.0 F 79 16 95/54 08/10/23 19:55 98.3 F 90 18 103/56 08/10/23 18:59 98.1 F 76 15 100/53 08/10/23 18:45 81 16 105/55 08/10/23 18:30 78 14 106/58 08/10/23 18:15 87 15 111/56 08/10/23 18:00 80 15 105/58 08/10/23 17:45 90 15 108/53 08/10/23 17:30 79 15 107/56 08/10/23 17:15 96.9 F L 75 14 109/55 08/10/23 16:43 80 16 106/53 08/10/23 16:28 99 16 114/68 08/10/23 16:13 75 16 114/58 08/10/23 15:58 97.6 F 100 991 H 113/55 08/10/23 11:11 98.5 F 66 18 107/57 Pulse Ox 08/11/23 07:59 98 08/11/23 04:00 96 08/11/23 00:00 96 08/10/23 19:55 96 08/10/23 18:59 97 08/10/23 18:45 95 08/10/23 18:30 96 08/10/23 18:15 99 08/10/23 18:00 98 08/10/23 17:45 97 08/10/23 17:30 98 08/10/23 17:15 96 08/10/23 16:43 93 L 08/10/23 16:28 98 08/10/23 16:13 99 08/10/23 15:58 99 08/10/23 11:11 97 Intake and Output 08/10/23 08/11/23 08/11/23 22:59 06:59 14:59 Intake Total 200 Output Total 368 575 Balance -168 575 Intake: IV 200 Output: Drainage 68 75 Left Breast 28 30 Right Breast 40 45 Urine 300 500 Other: # Voids 1 1 Results CBC & Chem 7: 08/11/23 07:20 Labs: Abnormal Lab Results - Last 24 Hours (Table) 08/11/23 Range/Units 07:20 WBC 11.7 H (3.8-10.6) k/uL Plt Count 124 L (150-450) k/uL Neutrophils # 9.3 H (1.3-7.7) k/uL
== END 2023-08-11 12:00 | disposition home or self-care (01) ==
LOC: OR 10:27 → 4FBP 15:49 → OR 08-11 12:00
PROVIDERS: ATTEND Surgery
DX: Z85.3 Personal history of malignant neoplasm of breast (principal); F41.9 Anxiety disorder, unspecified; F32.A Depression, unspecified; F17.210 Nicotine dependence, cigarettes, uncomplicated; Z79.899 Other long term (current) drug therapy
CPT/HCPCS: 19357; 15777; 19303; 38900; 38525; 81025; 85025; 88342; 88307; 88309; 88341; 38792; C1889; A9520; J2250; J0330; J1644 ×2; J1100; J0690 ×3; J2405; J2001; J3010; J3490; J1170 ×3; J2704; J1790; J2371

== ENCOUNTER → 2023-08-19 | Outpatient (CLI) | payer BC ==
[2023-08-19 15:38] VITALS: BP 116/73; PULSE 85; TEMP 98.3
--- NOTE | 2023-08-19 15:57 | P.PN ---
Progress Note - Text Progress Note Date: 08/19/23 Kate is a 43 year old female status post bilateral mastectomy and SNB on 08-10-23. Her margins were (-) left breast, 2.5 CM lesion. Two nodes removed, 1 (+) for macromets. Is complaining of some soreness under her left arm. Examination: Lungs: Clear Heart: Regular rate and rhythm Incision bilateral clean and dry and incision left axilla clean and dry Impression: Margins all negative, 1 node positive Plan: Appointment medical oncology Appointment radiation oncology Follow-up here in 4 months CC: Dr. Nahed De La Garza
== END ==
LOC: WWCWWP 15:19
PROVIDERS: ATTEND Surgery
DX: N63.0 Unspecified lump in unspecified breast (principal); Z90.13 Acquired absence of bilateral breasts and nipples

== ENCOUNTER → 2023-10-12 | Outpatient (CLI) | payer BC ==
--- NOTE | 2023-10-12 14:05 | BD ---
EXAMINATION TYPE: Axial Bone Density DATE OF EXAM: 10/12/2023 CLINICAL HISTORY: 43 years old Female. ICD-10 CODE: C50.112 BREAST CANCER Height: 62.5 Weight: 151.6 FRAX RISK QUESTIONS: Alcohol (3 or more units per day): no Family History (Parent hip fracture): no Glucocorticoids (More than 3mos): no (Ex: prednisone, prednisolone, methylprednisolone, dexamethasone, and hydrocortisone). History of Fracture in Adulthood: no Secondary Osteoporosis: 1. Type 1 Diabetes: no 2. Hyperthyroidism: no 3. Menopause before 45: no 4. Malnutrition: no 5. Chronic liver disease: no Rheumatoid Arthritis: no Current Tobacco Use: yes RISK FACTORS HISTORY OF: Surgery to Spine/Hip(right/left)/Wrist (right/left): no EXAM MEASUREMENTS: Bone mineral densitometry was performed using the [employer] System. Bone mineral density as measured about the Lumbar spine is: ----- L1-L4(G/cm2): 1.285 T Score Values are as follows: ----- L1: 0.3 ----- L2: -0.2 ----- L3: 1.0 ----- L4: 2.1 ----- L1-L4: 0.9 Z Score Values are as follows: ----- L1: 0.2 ----- L2: -0.3 ----- L3: 0.9 ----- L4: 2.0 ----- L1-L4: 0.8 Bone mineral density : baseline Bone mineral density about the R hip (g/cm2): 1.145 Bone mineral density about the L hip (g/cm2): 1.205 T Score values are as follows: -----R Neck: 0.2 -----L Neck: 0.6 -----R Total: 1.1 -----L Total: 1.6 Z Score values are as follows: -----R Neck: 0.7 -----L Neck: 1.1 -----R Total: 13 -----L Total: 1.8 Bone mineral density : baseline FRAX%s: The graph provided illustrates a 2.4% chance for a major osteoporotic fx and a 0.1% chance fo r the hips probability for fx in 10 years time. IMPRESSION: Normal (Values between +1 and -1 indicate normal bone mass). Consider repeating this study in 5 year s or sooner if there is some new clinical indication. NOTE: T-SCORE=SD OF THE YOUNG ADULT MEAN.
== END | disposition home or self-care (01) ==
LOC: RADBDWWP 12:39
PROVIDERS: ATTEND Internal Medicine Hematology & Oncology
DX: C50.112 Malignant neoplasm of central portion of left female breast (principal); Z71.3 Dietary counseling and surveillance
CPT/HCPCS: 77080

== ENCOUNTER → 2024-02-03 | Outpatient (CLI) | payer BC ==
[2024-02-03 14:58] VITALS: BP 125/75; PULSE 70; RESP 16; TEMP 98.4
--- NOTE | 2024-02-03 15:18 | P.PN ---
Subjective Progress Note Date: 02/03/24 Principal diagnosis: left breast invasive lobular cancer; T2N1M0 07-21-23 Chief Complaint: left breast invasive lobular cancer; stage I Kate is a 43 year old female seen in consultation for Nahed De La Garza regarding a biopsy proven left breast invasive lobular cancer. She had a bilateral mammogram on 06-01-23 which led to a bilateral ultrasound on the same date. This revealed cyst in both breast as well as a 9 mm lesion posterior to the left nipple. This was biopsied and was (+) for an invasive lobular cancer, ER+< Pr+, HEr2(-),G2. Her felt a lump in her left breast two months ago. She then decided to have this evaluated. She has always had dense breast but nothing that required biopsy. Not had any surgery on her breast in the past. She is not complaining of any recent trauma or infection in the breast. She does not complain of pain in the breast. She has regular menstrual periods. This was her first mammogram. She does get regular colonoscopies secondary to family history she has had polyps removed. Her last one was in 2021 two polpys removed no cancer. She has not had any genetic testing. Bilateral breast MRI was performed on [id number], findings revealed questionable multicentric disease in the left breast and left axillary lymph node with focally ectatic cortex Right breast no suspicious enhancing lesions noted MRI was reviewed with Dr. Pisano in detail Genetic testing performed negative Appointment with Dr. Moody/at this time the patient prefers bilateral mastectomy with immediate reconstruction 02-03-24 Kate is a 43 year old female status post bilateral mastectomies and left SNB on 08-10-23. Left breast 2.5 cm lesion two nodes one node (+) macromets. Note medical oncology reviewed from 10-04-23, oncotype 9; ovarian ablation zoladex and letrazole; she opted not to take chemotherapy note radiation oncology reviewed 10-06-23 recommended radiation; she has not yet started radiation secondary to her implants She had both spacers removed and replaced, and is waiting to start the radiation. She is having trouble sleeping at night Caffeine: coffee and pop daily nicotine: 1 PPD since 14 chocolate: occasional BCP: from 16 until 33 hormones: none Family History: mother: of colon cancer at 37 maternal uncle: of colon cancer in his 30's maternal uncle: of pancreatic cancer Maternal uncle: Diagnosed with pancreatic cancer maternal aunt: cancer ? type paternal grandfather: brain cancer Hormonal History: menarche: 12 , breast fed: no, age at first : 21 periods regular BCP: 16 to 33 Surgical history: tubaligation dental surgery Medical History: none Patient history: Nicotine: One pack per day Alcohol: Negative Drugs: Negative - Constitutional Constitutional: Denies chills, Denies fever - EENT Eyes: denies blurred vision, denies pain Ears: deny: decreased hearing, tinnitus Ears, nose, mouth and throat: Denies headache, Denies sore throat - Breasts Breasts: bilateral: as per HPI - Cardiovascular Cardiovascular: Denies chest pain, Denies shortness of breath - Respiratory Respiratory: Reports as per HPI, Denies cough - Gastrointestinal Gastrointestinal: Denies abdominal pain, Denies diarrhea, Denies nausea, Denies vomiting - Genitourinary (Female) Genitourinary: Denies dysuria, Denies hematuria - Menstruation Menstruation: Reports period normal - Musculoskeletal Musculoskeletal: Denies myalgias - Integumentary Comment: Rosacea/may be related to nerves Integumentary: Denies pruritus, Denies rash - Neurological Neurological: Denies numbness, Denies weakness - Psychiatric Psychiatric: Reports anxiety, Denies depression - Endocrine Endocrine: Denies fatigue, Denies weight change - Hematologic/Lymphatic Comment: none - Allergic/Immunologic Allergic/Immunologic: Reports as per HPI Past Medical History Past Medical History: No Reported History Additional Past Medical History / Comment(s): HEMORRHOIDS, HX COLON POLYPS., FAMILY HX OF COLON CANCER. History of Any Multi-Drug Resistant Organisms: None Reported Past Surgical History: Tubal Ligation Additional Past Surgical History / Comment(s): Colonoscopy with polypectomy. Past Anesthesia/Blood Transfusion Reactions: No Reported Reaction Past Psychological History: Anxiety Smoking Status: Current every day smoker Past Alcohol Use History: Rare Additional Past Alcohol Use History / Comment(s): Has been smoking for 20 yrs, 1 ppd. Past Drug Use History: None Reported - Past Family History Mother Family Medical History: Cancer Additional Family Medical History / Comment(s): Colon cancer. Medications and Allergies Home Medications Medication Instructions Recorded Confirmed Type PARoxetine [Paxil] 10 mg PO DAILY 04/11/21 06/18/23 History Allergies Allergy/AdvReac Type Severity Reaction Status Date / Time No Known Allergies Allergy Verified 06/18/23 13:45 Objective - Constitutional General appearance: Present: cooperative - EENT Eyes: Present: EOMI ENT: Present: hearing grossly normal - Neck Neck: Present: normal ROM - Respiratory Respiratory: bilateral: CTA - Cardiovascular Heart sounds: normal: S1, S2 - Integumentary Integumentary: Present: normal turgor - Musculoskeletal Musculoskeletal: Present: gait normal - Psychiatric Psychiatric: Present: A&O x's 3, appropriate affect, intact judgment & insight - Additional findings Additional findings: Breast Exam: incisions bilateral clean and dry right chest wall: No evidence of any tender Right axilla: No adenopathy of concern Left chest wall: No evidence of any recurrent tumor Left axilla: No adenopathy of concern Assessment and Plan Assessment: Impression: stage I left breast invasive lobular carcinoma, 2023 Nicotine dependence Genetic testing negative difficulty with sleeping Plan: follow Dr. Prakash continue to follow with radiation follow with Dr. Sun Genetic testing; negative Follow-up with Nahed De La Garza regarding difficulty sleeping We have discussed the surveillance plan which will include every 4 months evaluation for the first year then every 6 months out to 5 years and then yearly thereafter. We have discussed whether or not radiographic evaluation will be necessary and that will be determined at each visit. The patient is going to talk to her primary care doctor regarding her difficulty with sleeping. She is going to follow with radiation oncology after the expanders to the point that she can have radiation.
== END ==
LOC: WWCWWP 14:20
PROVIDERS: ATTEND Surgery
DX: C50.912 Malignant neoplasm of unspecified site of left female breast (principal); N60.01 Solitary cyst of right breast; N60.02 Solitary cyst of left breast; R92.30 Dense breasts, unspecified; F17.210 Nicotine dependence, cigarettes, uncomplicated; Z90.13 Acquired absence of bilateral breasts and nipples; Z17.0 Estrogen receptor positive status [ER+]; Z91.048 Other nonmedicinal substance allergy status

== ENCOUNTER 2024-04-20 10:24 | Day surgery (SDC) | payer BC ==
[~2024-04-20 10:24] MED LIST changes: -LACTATED RINGERS 1,000 ML IV SCH; -LIDOCAINE 1% (10MG/ML) FOR IV START INTRADERMA PRN; +SCOPOLAMINE 1 MG/72 HR PATCH TRANSDERM ONE
[2024-04-20] MEDS: LIDOCAINE 1% (10MG/ML) FOR IV START INTRADERMA PRN (11:02)
[2024-04-20] MEDS: IV FLUID CONTINUATION 1,000 ML IV ONE (11:05)
[2024-04-20] MEDS: DEXAMETHASONE SOD PHOSPHATE 4 MG/ML 1 ML VIAL IV ONE (11:06)
[2024-04-20] MEDS: ONDANSETRON 4 MG/2 ML VIAL IVP ONE (11:06)
[2024-04-20] MEDS: LACTATED RINGERS 1,000 ML IV SCH (11:07)
[2024-04-20] MEDS: MIDAZOLAM 2 MG/2 ML VIAL IV ONE (11:17)
[2024-04-20] MEDS ORDERED: NEOSTIGMINE 1 MG/ML 10 ML VIAL ONE (11:48)
[2024-04-20] MEDS ORDERED: PROPOFOL 10 MG/ML 20 ML VIAL IV ONE (11:48)
[2024-04-20] MEDS ORDERED: GLYCOPYRROLATE 0.2 MG/ML 2 ML VIAL ONE (11:48)
[2024-04-20] MEDS ORDERED: MIDAZOLAM 2 MG/2 ML VIAL ONE (11:48)
[2024-04-20] MEDS ORDERED: KETOROLAC 30 MG/ML 1 ML VIAL ONE (11:48)
[2024-04-20] MEDS ORDERED: LIDOCAINE 1% INJ 10MG/ML (20 ML MDV) ONE (11:48)
[2024-04-20] MEDS ORDERED: ePHEDrine 50 MG/ML 1 ML VIAL ONE (11:48)
[2024-04-20] MEDS ORDERED: ROCURONIUM 10 MG/ML (5 ML VIAL) IV ONE (11:48)
[2024-04-20] MEDS ORDERED: fentaNYL (PF) 50 MCG/ML 2 ML AMP ONE (11:48)
[2024-04-20] MEDS ORDERED: SUCCINYLCHOLINE CHLORIDE 200 MG/10 ML VIAL IV ONE (11:48)
[2024-04-20] MEDS: LACTATED RINGERS 1,000 ML IV ONE (13:15)
[2024-04-20 13:55] VITALS: TEMP 97.2
[2024-04-20 13:56] VITALS: RESP 16
[2024-04-20] MEDS: HYDROmorphone 0.5 MG/0.5 ML SYRINGE IVP PRN (14:02)
[2024-04-20] MEDS: fentaNYL (PF) 50 MCG/ML 2 ML AMP IV PRN (14:09)
[2024-04-20 15:56] VITALS: BP 104/61; PULSE 72
--- NOTE | 2024-04-24 09:20 | OP ---
OPERATIVE REPORT DATE OF SERVICE : 04/20/2024 PREOPERATIVE DIAGNOSES: 1. Acquired absence, right and left breast. 2. Personal history of breast cancer. 3. Acquired deformity, right and left reconstructed breast. 4. Acquired loss, right and left breast inframammary folds. POSTOPERATIVE DIAGNOSES: 1. Acquired loss, right and left breast. 2. Personal history of breast cancer. 3. Acquired deformity, right and left reconstructed breast. 4. Acquired loss, right and left breast inframammary folds. OPERATIVE PROCEDURES: 1. Replace, right reconstructed breast tissue community action worker with silicone breast implant for right breast reconstruction. 2. Revision, right reconstructed breast. 3. Replace, left reconstructed breast tissue community action worker with silicone breast implant for left breast reconstruction. 4. Revision, left reconstructed breast. 5. Reconstruction, right and left breast inframammary fold via local advancement flap, 85 cm2. OPERATIVE INDICATIONS: Patient is a 43-year-old female who has undergone therapeutic and prophylactic mastectomies for treatment of breast cancer with immediate reconstruction via prepectoral tissue community action worker technique. The patient did have difficulties with the expanders and ultimately they were both replaced. Since that those procedures, she has done remarkably well, is completely expanded without further difficulties. She is returning to surgery today for 2nd stage reconstructive process with replacement of her tissue community action worker, silicone breast implants, revision of the reconstructed breast due to contour irregularities, asymmetries that have occurred from the mastectomy expansion healing processes, also reconstruction inframammary folds that have been effaced by the expansion and mastectomy healing processes. The patient is aware of potential risks and complications related to the surgery, including those related to the silicon breast implants and those related to surgery itself such as hematoma, seroma, wound healing problems, infection, among others. She has requested to perform the surgery. DESCRIPTION OF PROCEDURE: The patient was seen in the preoperative area, markings made, procedure reviewed. All questions answered. She was transported to the operating room where she was placed in supine position. Following induction general anesthesia, the patient was prepped and draped in usual fashion. The mastectomy scars on the right and left side were located in the mid transverse area. Each scar marked with a skin marker. Incision was made in the right side using a scalpel to divide skin, then cauterization to divide subcutaneous tissue down to the graft layer. Extensive dissection was required to release skin and subcutaneous tissue flaps and grafts layer to optimize shape and form. This was completed with cautery, essentially re-elevating the mastectomy skin flaps. A lower transverse incision was made through the graft layer exposing the community action worker. The community action worker was removed intact. The expansion cavity appeared normal, was irrigated. Attention was turned toward the left side. Again, the incision made with a scalpel following the diagram present. Cauterization was used to divide the subcutaneous tissue down to the graft layer. Extensive dissection, elevating skin and subcutaneous tissue flaps off the graft layer were performed with cautery down to the chest wall through these contour irregularities and allow for optimal draping of an implant. A lower transverse incision was then made through the graft layer exposing the tissue community action worker which was removed intact. The expansion cavity appeared normal. Irrigation was performed on each side. A complete capsulotomy incision was now made where the capsule joined the chest wall, 1st on the right and then left side. Additional dissection was required superiorly, medially and inferiorly for both the right and left reconstructed breast to optimize shape and form for symmetry. This was completed with cautery. Hemostasis was maintained with cautery. Irrigation was performed. Modification of the capsules required a greater amount on left and right side with multiple cruciate incisions on each side, but greater amount on the left. With that complete, irrigation was performed. Hemostasis optimized with cautery. The right and left breast inframammary folds were now reconstructed through the inferior capsulotomy portion of the incision. Both folds measured the same 17 x 2.5 cm2. Skin and subcutaneous tissue flaps were elevated with cautery and then advanced in a cephalad fashion, secured into the chest wall rib, periosteal tissues using interrupted 2-0 Vicryl sutures on each side. With that complete, temporary breast implant sizers were opened on the field. Multiple sizers were tried. Ultimately, 700 cc sizer appeared optimal for the reconstruction with the patient evaluated in seated up position. Incisions temporary closed with james. She has returned to supine position. James removed. Temporary breast implant sizers were removed and the cavities irrigated. Hemostasis was optimal. Gloves were now changed and the implant opened on the field. Both implants were from the [facility] SoftTouch breast implant line measuring 700 cc in volume, reference #[id number] and serial number for the left side was [id number] and serial number for the right side was [id number]. Each device was passed in the reconstructive cavity using Mendez funnel no-touch technique. The implants were opened onto the field, irrigated with saline and then placed into the funnel and passed in the reconstructive cavity on the right or left side. Next, the graft layer was then closed over each breast implant using interrupted 3-0 Vicryl sutures followed by closure of the deep dermis using inverted interrupted 4-0 Monocryl and then closure of superficial dermis and epidermis with running 5-0 Prolene. Surgical colon were cleansed with saline dried and postoperative bandages placed using sterile 1 inch paper tape, Kerlix gauze, secured with 3M Medipore tape. Size 4 white mammary support was in position. The patient was awakened from anesthetic and transferred to the recovery room in good condition with stable vital signs. The estimated blood loss 25 cc. There were no complications. RUDY / ANSHUL: [id number] /
== END 2024-04-20 16:14 | disposition home or self-care (01) ==
LOC: OR 10:24
PROVIDERS: ATTEND Plastic Surgery
DX: Z85.3 Personal history of malignant neoplasm of breast
CPT/HCPCS: 81025

== ENCOUNTER → 2024-06-15 | Outpatient (CLI) | payer BC ==
[2024-06-15 14:28] VITALS: BP 114/73; PULSE 76; RESP 17; TEMP 98.7
--- NOTE | 2024-06-15 14:42 | P.PN ---
Subjective Progress Note Date: 06/15/24 06-15-24 Principal diagnosis: left breast invasive lobular cancer; T2N1M0 07-21-23 Chief Complaint: left breast invasive lobular cancer; stage I Kate is a 43 year old female seen in consultation for Nahed De La Garza regarding a biopsy proven left breast invasive lobular cancer. She had a bilateral mammogram on 06-01-23 which led to a bilateral ultrasound on the same date. This revealed cyst in both breast as well as a 9 mm lesion posterior to the left nipple. This was biopsied and was (+) for an invasive lobular cancer, ER+< Pr+, HEr2(-),G2. Her felt a lump in her left breast two months ago. She then decided to have this evaluated. She has always had dense breast but nothing that required biopsy. Not had any surgery on her breast in the past. She is not complaining of any recent trauma or infection in the breast. She does not complain of pain in the breast. She has regular menstrual periods. This was her first mammogram. She does get regular colonoscopies secondary to family history she has had polyps removed. Her last one was in 2021 two polpys removed no cancer. She has not had any genetic testing. Bilateral breast MRI was performed on [id number], findings revealed questionable multicentric disease in the left breast and left axillary lymph node with focally ectatic cortex Right breast no suspicious enhancing lesions noted MRI was reviewed with Dr. Pisano in detail Genetic testing performed negative Appointment with Dr. Moody/at this time the patient prefers bilateral mastectomy with immediate reconstruction 02-03-24 Kate is a 43 year old female status post bilateral mastectomies and left SNB on 08-10-23. Left breast 2.5 cm lesion two nodes one node (+) macromets. Note medical oncology reviewed from 10-04-23, oncotype 9; ovarian ablation zoladex and letrazole; she opted not to take chemotherapy note radiation oncology reviewed 10-06-23 recommended radiation; she has not yet started radiation secondary to her implants She had both spacers removed and replaced, and is waiting to start the radiation. She is having trouble sleeping at night 06-15-24 Kate is a 43 year old female status post bilateral mastectomies and left SNB on 08-10-23. Left breast 2.5 cm lesion two nodes one node (+) macromets. Note medical oncology reviewed from 10-04-23, oncotype 9; ovarian ablation zoladex and letrazole; she opted not to take chemotherapy note radiation oncology reviewed 10-06-23 recommended radiation; she has not yet started radiation secondary to her implants She had both spacers removed and replaced, and is waiting to start the radiation. She is having trouble sleeping at night note radiation oncology 03-06-24 have not recommended radiation therapy secondary to the time from surgery note medical oncology: 02-14-24 on zolodex and letrazole follow up in four months; the patient was started on kasqali she will be on this three years, takes it daily oral 200mg BID three weeks on one week off, it gives her diarrhea fatigue and nausea she is taking imodium Caffeine: coffee and pop daily nicotine: 1 PPD since 14 chocolate: occasional BCP: from 16 until 33 hormones: none Family History: mother: of colon cancer at 37 maternal uncle: of colon cancer in his 30's maternal uncle: of pancreatic cancer Maternal uncle: Diagnosed with pancreatic cancer maternal aunt: cancer ? type paternal grandfather: brain cancer Hormonal History: menarche: 12 , breast fed: no, age at first : 21 periods regular BCP: 16 to 33 Surgical history: tubaligation dental surgery Medical History: none Patient history: Nicotine: One pack per day Alcohol: Negative Drugs: Negative - Constitutional Constitutional: Denies chills, Denies fever - EENT Eyes: denies blurred vision, denies pain Ears: deny: decreased hearing, tinnitus Ears, nose, mouth and throat: Denies headache, Denies sore throat - Breasts Breasts: bilateral: as per HPI - Cardiovascular Cardiovascular: Denies chest pain, Denies shortness of breath - Respiratory Respiratory: Reports as per HPI, Denies cough - Gastrointestinal Gastrointestinal: Denies abdominal pain, Denies diarrhea, Denies nausea, Denies vomiting - Genitourinary (Female) Genitourinary: Denies dysuria, Denies hematuria - Menstruation Menstruation: Reports period normal - Musculoskeletal Musculoskeletal: Denies myalgias - Integumentary Comment: Rosacea/may be related to nerves Integumentary: Denies pruritus, Denies rash - Neurological Neurological: Denies numbness, Denies weakness - Psychiatric Psychiatric: Reports anxiety, Denies depression - Endocrine Endocrine: Denies fatigue, Denies weight change - Hematologic/Lymphatic Comment: none - Allergic/Immunologic Allergic/Immunologic: Reports as per HPI Past Medical History Past Medical History: No Reported History Additional Past Medical History / Comment(s): HEMORRHOIDS, HX COLON POLYPS., FAMILY HX OF COLON CANCER. History of Any Multi-Drug Resistant Organisms: None Reported Past Surgical History: Tubal Ligation Additional Past Surgical History / Comment(s): Colonoscopy with polypectomy. Past Anesthesia/Blood Transfusion Reactions: No Reported Reaction Past Psychological History: Anxiety Smoking Status: Current every day smoker Past Alcohol Use History: Rare Additional Past Alcohol Use History / Comment(s): Has been smoking for 20 yrs, 1 ppd. Past Drug Use History: None Reported - Past Family History Mother Family Medical History: Cancer Additional Family Medical History / Comment(s): Colon cancer. Medications and Allergies Home Medications Medication Instructions Recorded Confirmed Type PARoxetine [Paxil] 10 mg PO DAILY 04/11/21 06/18/23 History Allergies Allergy/AdvReac Type Severity Reaction Status Date / Time No Known Allergies Allergy Verified 06/18/23 13:45 Objective - Vital Signs Vital signs: Vital Signs Temp 98.7 F 06/15/24 14:26 Pulse 76 06/15/24 14:26 Resp 17 06/15/24 14:26 BP 114/73 06/15/24 14:26 Pulse Ox 96 06/15/24 14:26 FiO2 Intake & Output 06/14/24 06/15/24 06/15/24 18:59 06:59 18:59 Weight 73.936 kg - Constitutional General appearance: Present: cooperative - EENT Eyes: Present: EOMI ENT: Present: hearing grossly normal - Neck Neck: Present: normal ROM - Respiratory Respiratory: bilateral: CTA - Cardiovascular Rhythm: regular Heart sounds: normal: S1, S2 - Integumentary Integumentary: Present: normal turgor - Musculoskeletal Musculoskeletal: Present: gait normal - Psychiatric Psychiatric: Present: A&O x's 3, appropriate affect, intact judgment & insight - Additional findings Additional findings: Breast Exam: incisions bilateral clean and dry right chest wall: No evidence of any lesions, implant in place no lesions of concern Right axilla: No adenopathy of concern Left chest wall: No evidence of any recurrent tumor, implant in place no lesions of concern Left axilla: No adenopathy of concern Assessment and Plan Assessment: Impression: stage I left breast invasive lobular carcinoma, 2023 Nicotine dependence Genetic testing negative difficulty with sleeping Plan: follow Dr. Prakash bilateral axillary ultrasound in 4 months with appointment at that time follow with Dr. Sun Genetic testing; negative Follow-up with Nahed De La Garza regarding difficulty sleeping We have discussed the surveillance plan which will include every 4 months evaluation for the first year then every 6 months out to 5 years and then yearly thereafter. We have discussed whether or not radiographic evaluation will be necessary and that will be determined at each visit. The patient is going to talk to her primary care doctor regarding her difficulty with sleeping. She is going to follow with radiation oncology after the expanders to the point that she can have radiation. Additional CC's: Cookie Prather
== END ==
LOC: WWCWWP 13:02
PROVIDERS: ATTEND Surgery
DX: C50.912 Malignant neoplasm of unspecified site of left female breast (principal); F17.210 Nicotine dependence, cigarettes, uncomplicated; N60.01 Solitary cyst of right breast; N60.02 Solitary cyst of left breast; Z90.13 Acquired absence of bilateral breasts and nipples; Z91.048 Other nonmedicinal substance allergy status

== ENCOUNTER → 2024-09-01 | Outpatient (CLI) | payer BC ==
--- NOTE | 2024-09-01 19:55 | MR ---
EXAMINATION TYPE: MR brain wo/w con DATE OF EXAM: 09/01/2024 7:42 PM COMPARISON: None. CLINICAL INDICATION: Female, 44 years old with history of C50.112 BREAST CANCER, breast cancer, dizzi ness. TECHNIQUE: Multiplanar, multiecho imaging on a 3.0 Gilda magnet is performed through the brain. Stud y is performed within 24 hours of arrival to the hospital.Multiplanar, multiecho imaging on a 3.0 Vilma la magnet is performed through the knee. IV Contrast: 7.5 mL Gadobutrol (None, if empty) FINDINGS: The craniovertebral junction is normal. The pituitary is normal. Diffusion-weighted imaging is performed. No abnormal hyperintensity is present to suggest an acute i ntracranial infarct or acute ischemic change. There is a punctate hyperintensity and very attenuated sequences within the subcortical white matter of the left frontal lobe. This is nonspecific No suspicious enhancement is evident. Ventricles and sulci are appropriate for the patient age. IMPRESSION: 1. No acute abnormality Pre or Post contrast MRI Brain. [facility], , 09/01/2024 7:53 PM
== END | disposition home or self-care (01) ==
LOC: RADMRIMAIN 19:15
PROVIDERS: ATTEND Internal Medicine Hematology & Oncology
DX: C50.112 Malignant neoplasm of central portion of left female breast (principal)
CPT/HCPCS: 70553; A9585

== ENCOUNTER → 2024-10-16 | Outpatient (CLI) | payer BC ==
--- NOTE | 2024-10-16 11:28 | USB ---
Reason for Exam: Clinical finding. Patient History: Menarche at age 13. First Full-Term at age 21. Breast cancer, left, age 43. Patient used Hormonal Contraceptives for 15 years. 08/10/2023, Mastectomy on the Left side. 08/10/2023, Mastectomy on the Right side. 06/11/2023, Malignant US biopsy breast VAD LT on the left side. Technique: Method: Targeted. Prior Study Comparison: 06/01/2023 Bilateral MG 3D diag mammo w/cad [facility], [facility]. 06/11/2023 Left MG diagnostic mammo LT wo CAD., [facility]. Findings: The axilla of the right breast was scanned. Targeted axillary ultrasound. Benign-appearing, nonenlarged, non thickened lymph nodes are noted. Overall Assessment: Benign, BI-RAD 2 Management: Clinical Management of both breasts in 1 year. A clinical breast exam by your physician is recommended on an annual basis and results should be correlated with mammographic findings. This exam should not preclude additional follow-up of suspicious palpable abnormalities. Results were given to the patient verbally at the time of exam. [facility], , 10/16/2024 11:25 AM. Electronically signed and approved by: Froy Juan M.D. Radiologist
--- NOTE | 2024-10-16 11:29 | USB ---
Reason for Exam: Clinical finding. Patient History: Menarche at age 13. First Full-Term at age 21. Breast cancer, left, age 43. Patient used Hormonal Contraceptives for 15 years. 08/10/2023, Mastectomy on the Left side. 08/10/2023, Mastectomy on the Right side. 06/11/2023, Malignant US biopsy breast VAD LT on the left side. Technique: Method: Targeted. Prior Study Comparison: 06/01/2023 Bilateral MG 3D diag mammo w/cad ISAAC, [facility]. 06/11/2023 Left MG diagnostic mammo LT wo CAD., [facility]. Findings: The axilla of the left breast was scanned. Targeted axillary ultrasound. Benign-appearing, nonenlarged, non thickened lymph nodes are noted. Overall Assessment: Benign, BI-RAD 2 Management: Clinical Management of both breasts in 1 year. A clinical breast exam by your physician is recommended on an annual basis and results should be correlated with mammographic findings. This exam should not preclude additional follow-up of suspicious palpable abnormalities. Results were given to the patient verbally at the time of exam. [facility], , 10/16/2024 11:26 AM. Electronically signed and approved by: Froy Juan M.D. Radiologist
== END | disposition home or self-care (01) ==
LOC: RADUSWWP 10:27
PROVIDERS: ATTEND Surgery
DX: Z85.3 Personal history of malignant neoplasm of breast (principal); Z92.0 Personal history of contraception; Z90.13 Acquired absence of bilateral breasts and nipples